=== PATIENT | male | born 1985 | race Caucasian/White ===

== ENCOUNTER 2017-06-10 06:30 | Day surgery (SDC) | payer SELFPAY ==
[~2017-06-10 06:30] MED LIST: Lactated Ringers 1,000 ML IV SCH; ceFAZolin 2 GM in Premix Bag 1 BAG IV SCH
--- NOTE | 2017-06-10 07:17 | PCM.PREANE ---
Preanesthetic Assessment - Anesthesia/Transfusion/Family Hx Anesthesia History: Prior Anesthesia Without Reaction Family History of Anesthesia Reaction: No Transfusion History: No Prior Transfusion(s) - Review of Systems General: No Symptoms Pulmonary: No Symptoms Cardiovascular: No Symptoms Gastrointestinal: No Symptoms Neurological: No Symptoms Other: Reports: None - Physical Assessment NPO Status Date: 06/09/17 Height: 1.75 m Weight: 69.4 kg ASA Class: 2 Mental Status: Alert & Oriented x3 Airway Class: Mallampati = 2 Dentition: Reports: Normal Dentition ROM/Head Extension: Full Lungs: Clear to Auscultation, Normal Respiratory Effort Cardiovascular: Regular Rate, Regular Rhythm - Allergies Allergies/Adverse Reactions: Allergies Allergy/AdvReac Type Severity Reaction Status Date / Time No Known Allergies Allergy Verified 06/08/17 08:02 - Anesthesia Plan Pre-Op Medication Ordered: None - Acknowledgements Anesthesia Type Planned: General Anesthesia Pt an Appropriate Candidate for the Planned Anesthesia: Yes Alternatives and Risks of Anesthesia Discussed w Pt/Guardian: Yes Pt/Guardian Understands and Agrees with Anesthesia Plan: Yes PreAnesthesia Questionnaire HEENT History: Reports: None Gastrointestinal History: Reports: GERD Musculoskeletal History: Reports: Fracture Other Musculoskeletal History: hx fx nose and arm Neurological History: Reports: Concussion Other Neuro History: hx "mild concussion" Psychiatric History: Reports: Anxiety, Bipolar, Depression - Past Surgical History Head Surgeries/Procedures: Reports: None HEENT Surgical History: Reports: Naso-Sinus Surgery Other HEENT Surgeries/Procedures: surgery for fx nose - SUBSTANCE USE Smoking Status *Q: Current Every Day Smoker Tobacco Use Within Last Twelve Months: Cigarettes - HOME MEDS Home Medications: Home Meds Dextroamphetamine/Amphetamine [Adderall 20 mg Tablet] 20 mg PO BID 06/08/17 [ History] Venlafaxine [Effexor] 75 mg PO BID 06/08/17 [History] - CURRENT (IN HOUSE) MEDS Current Meds: Current Medications Cefazolin Sodium/Dextrose 2 gm (/ Premix) 50 mls @ 100 mls/hr IV ONETIME ZAINAB Lactated Ringer's (Ringers, Lactated) 1,000 mls @ 125 mls/hr IV ASDIRECTED ZAINAB
[2017-06-10] MEDS ORDERED: Lidocaine 2% 5 ML SDV ONE (07:21)
[2017-06-10] MEDS ORDERED: Propofol 200 MG/20 ML SDV ONE (07:21)
[2017-06-10] MEDS ORDERED: fentaNYL 100 MCG/2 ML SDV ONE ×2 (07:21→08:48)
[2017-06-10] MEDS ORDERED: Midazolam 1 MG/ML 2 ML SDV ONE (07:21)
[2017-06-10] MEDS ORDERED: Neostigmine Methylsulfate 1 MG/ML 5 ML Syringe ONE (07:22)
[2017-06-10] MEDS ORDERED: Ondansetron 4 MG/2 ML SDV ONE (07:22)
[2017-06-10] MEDS ORDERED: Ketorolac 30 MG/ML SDV ONE (07:22)
[2017-06-10] MEDS ORDERED: Glycopyrrolate 0.2 MG/ML SDV ONE (07:22)
[2017-06-10] MEDS ORDERED: Rocuronium 10 MG/ML 10 ML Syringe ONE (07:22)
[2017-06-10] MEDS ORDERED: ceFAZolin 1 GM Vial ONE (07:23)
[2017-06-10] MEDS ORDERED: Bupivacaine 0.5% 10 ML SDV ONE (07:23)
[2017-06-10] MEDS ORDERED: fentaNYL 100 MCG/2 ML SDV IVPUSH PRN (08:23)
[2017-06-10] MEDS ORDERED: HYDROmorphone 2 MG/ML Syringe IVPUSH ONE (08:23)
[2017-06-10] MEDS ORDERED: Acetaminophen/HYDROcodone 325-5 MG Tab PO PRN (09:51)
[2017-06-10] MEDS ORDERED: Morphine 10 MG/ML Syringe IVPUSH PRN (09:51)
[2017-06-10] MEDS ORDERED: Ondansetron 4 MG/2 ML SDV IVPUSH PRN (09:51)
[2017-06-10] MEDS ORDERED: Lactated Ringers 1,000 ML IV SCH (10:00)
--- NOTE | 2017-06-10 10:02 | PCM.OPNOTE ---
- General Post-Op/Procedure Note Date of Surgery/Procedure: 06/10/17 Operative Procedure(s): Repair left inguinal hernia with medium Bard PerFix plug and patch. Repair right inguinal hernia with small Bard PerFix plug and patch. Pre Op Diagnosis: Bilateral reducible inguinal hernia Post-Op Diagnosis: Same Anesthesia Technique: General ET Tube (ASA II) Primary Surgeon: Dimitry Carr Fluid Replacement, Intraop: 1,800 EBL in mLs: 20 Condition: Good Free Text/Narrative:: Dictation [id number] CPT CODE 58151. Bilateral
--- NOTE | 2017-06-10 10:23 | PCM.POSTAN ---
POST ANESTHESIA ASSESSMENT - MENTAL STATUS Mental Status: Alert, Oriented - RESPIRATORY Respiratory Status: Respiratory Rate WNL, Airway Patent, O2 Saturation Stable - CARDIOVASCULAR CV Status: Pulse Rate WNL, Blood Pressure Stable - GASTROINTESTINAL GI Status: No Symptoms - POST OP HYDRATION Hydration Status: Adequate & Stable
--- NOTE | 2017-06-10 11:18 | PCM48HPAN ---
Post Anesthesia Note - EVALUATION WITHIN 48HRS OF ANESTHETIC Vital Signs in Normal Range: Yes Patient Participated in Evaluation: Yes Respiratory Function Stable: Yes Airway Patent: Yes Cardiovascular Function Stable: Yes Hydration Status Stable: Yes Pain Control Satisfactory: Yes Nausea and Vomiting Control Satisfactory: Yes Mental Status Recovered: Yes
--- NOTE | 2017-06-13 16:21 | OR ---
SURGEON: Dimitry Carr M.D. DATE OF PROCEDURE: 06/10/2017 OPERATION PERFORMED: 1. Repair of left inguinal hernia with medium Bard PerFix plug and patch. 2. Repair of right inguinal hernia with small Bard PerFix plug and patch. ANESTHESIA: General endotracheal ASA CLASSIFICATION: II. PREOPERATIVE DIAGNOSIS: Bilateral reducible inguinal hernia. POSTOPERATIVE DIAGNOSIS: Bilateral reducible inguinal hernia. ESTIMATED BLOOD LOSS: 20 mL. FLUID REPLACEMENT: 1800 mL of crystalloid. DESCRIPTION OF PROCEDURE: The patient was taken to the operating room and placed on the operating room table in the supine position. Time-out was called for appropriate identification of the patient and procedure. Both surgical sites had been marked prior to the patient entering the operating room. Following satisfactory attainment of general endotracheal anesthesia, the abdomen was prepped with DuraPrep solution and sterile drapes were applied. The left side was the more symptomatic side. Skin incisions were marked out for symmetry. The left inguinal crease was infiltrated with 0.5% Marcaine solution. The skin incision was made and deepened through the subcutaneous tissue obtaining hemostasis with the use of electrocautery. The external oblique fascia was opened in the direction of its fibers. The cord was then dissected away from the hernia sac and encircled with a [place] drain. Once the hernia sac was removed, the defect could further be delineated. A medium Bard PerFix plug and patch was brought to the operating table and soaked in 1% Ancef solution. The plug was placed into the internal ring and secured with interrupted 0 Ethibond suture. The patch was placed over the floor of the canal and secured medially and inferiorly to Malcom's ligament transitioning to the inguinal ligament and superiorly to the transversalis fascia. The wings of the patch were brought around the cord and again secured laterally with an 0 Ethibond suture. All sutures were tied down. The patient was given a Valsalva maneuver to 50 cm of water. The repair was solid. The wound was then irrigated with 1% Ancef solution and all fluid was aspirated. The cord was returned to its anatomic position and the external oblique fascia was closed with 3-0 Vicryl. Elijah's fascia was closed with 3-0 Vicryl and skin edges were reapproximated with subcuticular 4-0 Monocryl. Our attention was now turned to the right side. Again, the skin was infiltrated with 0.5% Marcaine solution. The skin incision was made and deepened through the subcutaneous tissue obtaining hemostasis with the use of electrocautery. Again, the external oblique fascia was opened in the direction of its fibers. The cord was then mobilized, the sac identified, and dissected free and reduced. The internal ring was a little bit smaller and therefore a small Bard PerFix plug and patch was brought to the operating table and soaked in 1% Ancef solution. The floor on the right side was a little bit weaker. The patch was placed over the floor and the wings brought around the cord laterally. Again, the repair was carried out from medial to lateral. Medially and inferiorly, suture was placed to Malcom's ligament and to the pubic tubercle and secured. The remainder of the sutures were placed from the inguinal ligament to the patch and superiorly from the patch to the transversalis fascia. Again, all sutures were tied down and the patient was given a Valsalva maneuver. The wings of the patch had been secured lateral to the cord. There was again no evidence of any defect or weakness in the floor. The wound was irrigated with 1% Ancef solution. The cord was returned to its anatomic position. The external oblique was reapproximated with 3-0 Vicryl. Elijah's fascia was closed with 3-0 Vicryl and the skin edges were reapproximated with subcuticular 4-0 Monocryl. Both incisions were Steri-Stripped and dressed with sterile Tegaderm pads. Sponge, needle, and instrument counts were all correct. The patient tolerated the procedure well. Following emergence from anesthesia and extubation, he was taken to recovery room in stable condition. CATHI CALLE /[id number]
== END 2017-06-10 11:15 | disposition home or self-care (01) ==
LOC: MW.SDS 06:30
PROVIDERS: ATTEND Surgery
DX: K40.20 Bilateral inguinal hernia, without obstruction or gangrene, not specified as recurrent (principal); F17.210 Nicotine dependence, cigarettes, uncomplicated; K21.9 Gastro-esophageal reflux disease without esophagitis; F41.9 Anxiety disorder, unspecified; F31.9 Bipolar disorder, unspecified; Z79.899 Other long term (current) drug therapy; Z98.890 Other specified postprocedural states
CPT/HCPCS: 49505; A9270; J0690; J1885; J2250; J2405; J3010; J7120; 00830; C1781; J2704